=== PATIENT | male | born 1985 | race Caucasian/White ===

== ENCOUNTER 2023-08-04 13:33 | Emergency (ER) | payer OTHER ==
[2023-08-04] MEDS ORDERED: diphenhydrAMINE 25 MG CAP ONE (13:48)
[2023-08-04] MEDS ORDERED: Dexamethasone 4 mg/ml Vial ONE (13:48)
== END 2023-08-04 17:00 ==
LOC: NAV ERS 13:33
DX: T63.441A Toxic effect of venom of bees, accidental (unintentional), initial encounter (principal); B20 Human immunodeficiency virus [HIV] disease
CPT/HCPCS: 99282; J1100